=== PATIENT | female | born 1935 | race Caucasian/White ===

== ENCOUNTER 2017-01-24 16:46 | Emergency (ER) | payer MEDICARE, OTHER ==
--- NOTE | ~2017-01-24 | CR141 ---
[facility] A Service of [facility] / [facility] RADIOLOGY TEXT RESULTS PATIENT: GEENA GRIFFIN LOCATION: [facility] : 39 UNIT #: [id number] AGE: [address]: Ann Handy APRN SEX: F ORDER DR: [id number] [facility] [address] [place], [place] [address] [id number] E MR#: [id number] Acc #: [id number] NAME: GEENA GRIFFIN. : 1935 SEX: F STUDY DATE/TIME: 01/24/2017 18:08 UNIT: [facility] ROOM: STUDY DESCRIPTION: CR Hand Min 3 Views Lt Attending Physician: Ann Handy A.P.R.N. Ordering Physician: Landen De León M.D. Primary Care Physician: Marily García M.D. MEDICAL IMAGING REPORT This report is preliminary unless electronic signature is present EXAM Left hand series dated 01/24/17. COMPARISON None. HISTORY Left hand pain, evaluate for fracture. Patient fell today. FINDINGS Three views of the left hand were obtained. There is mild diffuse bony osteopenia with mild sclerotic changes and probably arthritic changes in multiple interphalangeal joints of the 5 digits. Metacarpophalangeal joint are intact. Mild arthritic change of the first carpometacarpal joint cannot be excluded. No obvious significant acute displaced fracture, dislocation or obvious soft tissue abnormality could be discerned. Dictated by... Scott Mendez M.D. THIS IS AN ELECTRONICALLY VERIFIED REPORT Scott Mendez M.D. at 01/27/2017 3:33 PM CPR/pc TD: 01/25/2017 09:07 JOB #: [id number] MEDICAL IMAGING REPORT Page 1 of 1 COPY
[~2017-01-24 16:46] MED LIST: FOSAMAX PO; GLAUCOMA MED; LORTAB 7.5-5001 TAB PO; NEXIUM PO; OYSTER CALCIUM500 MG PO; SYNTHROID PO; XALATAN OP
== END 2017-01-24 19:10 | disposition home or self-care (01) ==
LOC: CFTX 16:46 → CED 16:46 → CFTX 18:49
DX: S60.222A Contusion of left hand, initial encounter (principal); E78.5 Hyperlipidemia, unspecified; E03.9 Hypothyroidism, unspecified; W01.0XXA Fall on same level from slipping, tripping and stumbling without subsequent striking against object, initial encounter; Y92.009 Unspecified place in unspecified non-institutional (private) residence as the place of occurrence of the external cause
CPT/HCPCS: 29260; 73130; 99283